=== PATIENT | male | born 1990 | race Caucasian/White ===

== ENCOUNTER 2024-11-24 14:27 | Outpatient (CLI) | payer BC, SELFPAY ==
--- NOTE | ~2024-11-24 | MR_ITS ---
MRI of the cervical spine Clinical History: Neck pain, radiculopathy Technique: Axial T2-weighted and gradient images, and sagittal T1-weighted, T2-weighted, and STIR luciana ges were acquired. Findings: There is no fracture or subluxation. There is mild reversal of the normal cervical lordosis . No bone marrow signal abnormality seen. At C2-C3, there is no disc bulge or herniation. No spinal canal stenosis, cord compression or neural foraminal narrowing. At C3-C4, there is disc osteophyte complex with minimal flattening the ventral cord, especially on th e right side. There is right neural foraminal narrowing. No left neural foraminal narrowing. At C4-C5, there is no disc bulge or herniation. No spinal canal stenosis, cord compression, or neural foraminal narrowing. At C5-C6, there is disc osteophyte complex which mildly compresses the ventral side of the spinal cor d on the left. There is bilateral facet arthropathy, left worse than right. No definite neural forami nal narrowing. At C6-C7, there is no significant disc bulge or herniation. No spinal canal stenosis, cord compressio n, or neural foraminal narrowing. No abnormal signal seen in the spinal cord. Paravertebral soft tissues are unremarkable. Impression: Mild ventral cord flattening/compression at C3-C4 and C5-C6, as detailed above. Reviewed, dictated and finalized at [facility]. Impression: Mild ventral cord flattening/compression at C3-C4 and C5-C6, as detailed above.
== END 2024-11-24 14:28 | disposition home or self-care (01) ==
LOC: MICIMG 14:29
PROVIDERS: PCP Nurse Practitioner Family; Visit Provider Chiropractor Rehabilitation
DX: M47.22 Other spondylosis with radiculopathy, cervical region (principal)
CPT/HCPCS: 72141